=== PATIENT | female | born 1955 | race Caucasian/White ===

== ENCOUNTER → 2020-10-17 | Day surgery (SDC) | payer OTHER ==
[~2020-10-17] MED LIST: ALLERCLEAR10 MG PO; ATORVASTATIN CA40 MG PO; BASAGLAR K100 UNIT/1 SQ; BASAGLAR SQ; BRILINTA 90 MG90 MG PO; CELEXA20 MG PO; CITALOPRAM HBR20 MG PO; CLEARLAX119 GM PO; COLACE 100MG C100 MG PO; COUMADIN7.5 MG PO; CRESTOR20 MG PO; DOCUSATE SODIU100 MG PO; DULERA 100 MCG8.8 GM INH; ECOTRIN81 MG PO; FLUZONE QU60 MCG/015 IM; FUROSEMIDE20 MG PO; HUMALOG MI100 UNIT/3 SC; HUMALOG MI100 UNIT/3 SQ; HYDROCODON-ACE1 EAC6 PO; IMDUR ER TAB 3030 MG PO; K-DUR TAB 10 M10 MEQ PO; K-TAB ER10 MEQ PO; LASIX20 MG PO; LIDOPATCH1 EACH TOP; LIPITOR TAB 2020 MG PO; LOPRESSOR 25 MG25 MG PO; MEDROL DOSEPAK 24 MG PO; NARCAN 2 MG/21 MG/ML; NEURONTIN 400400 MG PO; NEURONTIN400 MG PO; NORCO 10-325 T1 EACH PO; NOVOLOG MI100 UNIT/2 SQ; NOVOLOG100 UNIT/1 SQ; OMEPRAZOLE20 MG PO; PLETAL 100 MG100 MG PO; PRILOSEC OTC20 MG PO; PROVENTIL HFA6.7 GM INH; REQUIP2 MG PO; ROPINIROLE HCL1 MG PO; TUMS ULTRA400 MG PO; VALIUM 10 MG TA10 MG PO; VALIUM 5 MG TAB5 MG PO; VENTOLIN HFA 66.7 GM INH; VENTOLIN/PROVE0.5 ML INH; VITAMIN D250000 UNIT PO; VITAMIN D3 PO; WARFARIN SODIU7.5 MG PO; ZOCOR40 MG PO; ZOFRAN4 MG PO; ZYRTEC10 MG PO
== END | disposition home or self-care (01) ==
LOC: OR 06:04
DX: D50.0 Iron deficiency anemia secondary to blood loss (chronic) (principal); D68.32 Hemorrhagic disorder due to extrinsic circulating anticoagulants; T45.515A Adverse effect of anticoagulants, initial encounter; K29.70 Gastritis, unspecified, without bleeding; I25.2 Old myocardial infarction; I25.10 Atherosclerotic heart disease of native coronary artery without angina pectoris; E78.5 Hyperlipidemia, unspecified; I10 Essential (primary) hypertension; J45.909 Unspecified asthma, uncomplicated; E11.9 Type 2 diabetes mellitus without complications; M19.90 Unspecified osteoarthritis, unspecified site; F17.200 Nicotine dependence, unspecified, uncomplicated; E78.00 Pure hypercholesterolemia, unspecified; K64.8 Other hemorrhoids; E66.9 Obesity, unspecified; Z68.34 Body mass index [BMI] 34.0-34.9, adult; Z79.82 Long term (current) use of aspirin; Z79.01 Long term (current) use of anticoagulants; Z79.899 Other long term (current) drug therapy; Z79.891 Long term (current) use of opiate analgesic; Z88.8 Allergy status to other drugs, medicaments and biological substances; Z88.1 Allergy status to other antibiotic agents; Z86.74 Personal history of sudden cardiac arrest; Z85.3 Personal history of malignant neoplasm of breast; Z96.653 Presence of artificial knee joint, bilateral; Z95.5 Presence of coronary angioplasty implant and graft; Z79.4 Long term (current) use of insulin
CPT/HCPCS: 82962; J1100; J2704; J7040

== ENCOUNTER 2022-02-21 01:46 | Inpatient (IN) | payer MEDICARE, OTHER ==
[~2022-02-21] VITALS: Ht 170.2 cm; Wt 96.2 kg
[~2022-02-21 01:46] MED LIST changes: +ROPINIROLE HCL0.5 MG PO; -ROPINIROLE HCL1 MG PO
[2022-02-21 02:50] LABS: HEMOGLOBIN 7.5 gm/dl (12.3-15.3); RED BLOOD COUNT 3.14 M/UL (4.00-5.10); WHITE BLOOD COUNT 6.6 K/UL (4.5-11.0)
[2022-02-21 03:18] LABS: BUN/CREATININE RATIO 23 (0-10)
[2022-02-21] MEDS ORDERED: DIAZEPAM2 MG PO (09:45)
[2022-02-21] MEDS ORDERED: MORPHINE SULFAT60 M1 PO (09:46)
[2022-02-21] MEDS ORDERED: SENNA8.6 MG PO (09:49)
[2022-02-21] MEDS ORDERED: ALBUTEROL2.5 MG/3 M INH (13:16)
[2022-02-21] MEDS ORDERED: ONDANSETRON HCL4 MG PO (13:16)
[2022-02-21] MEDS ORDERED: WARFARIN SODIUM5 MG PO (13:17)
[2022-02-21] MEDS ORDERED: LEVEMIR FL100 UNIT/1 SQ (13:18)
[2022-02-21] MEDS ORDERED: LINZESS145 MCG PO (13:20)
[2022-02-22 07:59] LABS: HEMOGLOBIN 9.2 gm/dl (12.3-15.3)
[2022-02-22 08:02] LABS: RED BLOOD COUNT 3.63 M/UL (4.00-5.10); WHITE BLOOD COUNT 4.3 K/UL (4.5-11.0)
[2022-02-22 08:15] LABS: BUN/CREATININE RATIO 21 (0-10)
[2022-02-22] MEDS ORDERED: CYCLOBENZAPRINE10 MG PO (11:56)
[2022-02-22] MEDS ORDERED: ENDOCET 10-3251 EACH PO (11:56)
[2022-02-22] MEDS ORDERED: ELIQUIS2.5 MG PO (11:56)
--- NOTE | 2022-02-22 15:31 | NUR ---
clarification from dr. simpson r/t coumadin and lovenox ordered and stated to give both medicine as ordered
[2022-02-23 02:57] LABS: HEMOGLOBIN 7.3 gm/dl (12.3-15.3); WHITE BLOOD COUNT 5.1 K/UL (4.5-11.0)
[2022-02-23 03:14] LABS: RED BLOOD COUNT 2.83 M/UL (4.00-5.10)
[2022-02-23 03:24] LABS: BUN/CREATININE RATIO 32 (0-10)
[2022-02-24 02:56] LABS: HEMOGLOBIN 7.7 gm/dl (12.3-15.3); RED BLOOD COUNT 2.89 M/UL (4.00-5.10); WHITE BLOOD COUNT 5.2 K/UL (4.5-11.0)
[2022-02-24 03:33] LABS: BUN/CREATININE RATIO 25 (0-10)
[2022-02-25 03:33] LABS: BUN/CREATININE RATIO 23 (0-10)
[2022-02-25 06:53] LABS: RED BLOOD COUNT 2.74 M/UL (4.00-5.10); WHITE BLOOD COUNT 4.3 K/UL (4.5-11.0)
[2022-02-25 07:02] LABS: HEMOGLOBIN 6.9 gm/dl (12.3-15.3)
[2022-02-25 18:10] LABS: RED BLOOD COUNT 2.98 M/UL (4.00-5.10); WHITE BLOOD COUNT 4.5 K/UL (4.5-11.0)
[2022-02-26 02:18] LABS: HEMOGLOBIN 7.2 gm/dl (12.3-15.3); WHITE BLOOD COUNT 3.7 K/UL (4.5-11.0)
[2022-02-26 02:24] LABS: RED BLOOD COUNT 2.66 M/UL (4.00-5.10)
[2022-02-26 02:52] LABS: BUN/CREATININE RATIO 27 (0-10)
[2022-02-27 03:44] LABS: RED BLOOD COUNT 2.54 M/UL (4.00-5.10); WHITE BLOOD COUNT 3.3 K/UL (4.5-11.0)
[2022-02-27 04:03] LABS: BUN/CREATININE RATIO 25 (0-10)
--- NOTE | 2022-02-27 10:13 | NUR ---
0909- ATTEMPTED TO CALL DR. CASPER TO NOTIFY HER OF PT HGB 7.0. NO ANSWER, WILL CONTINUE TO TRY TO NOTIFY HER.
--- NOTE | 2022-02-27 10:29 | NUR ---
1029- SPOKE WITH DR CASPER ABOUT PTS HGB 7.0. STATES SHE IS AWARE. NO ORDERS AT THIS TIME
[2022-02-28 04:31] LABS: HEMOGLOBIN 7.7 gm/dl (12.3-15.3); RED BLOOD COUNT 2.62 M/UL (4.00-5.10)
[2022-02-28 04:50] LABS: BUN/CREATININE RATIO 32 (0-10)
[2022-02-28] MEDS ORDERED: ENOXAPARIN100 MG/1 M SC (08:47)
[2022-02-28] MEDS ORDERED: HUMALOG 10100 UNITS/ SC (08:47)
[2022-02-28] MEDS ORDERED: DIAZEPAM2 MG PO (08:47)
[2022-02-28] MEDS ORDERED: NEURONTIN400 MG PO (08:47)
[2022-02-28] MEDS ORDERED: MORPHINE SULFAT60 M1 PO (08:47)
== END 2022-02-28 15:15 | DRG 481 ==
LOC: ER1 01:46 → CDU 04:58 → M/S 04:58
PROVIDERS: Internal Medicine; Orthopaedic Surgery; Student in an Organized Health Care Education/Training Program; ADMIT Internal Medicine
PROC: 0QS706Z Reposition Left Upper Femur with Intramedullary Internal Fixation Device, Open Approach (ICD-10-PCS; principal; 2022-02-22 11:30)
PROC: 30233N1 Transfusion of Nonautologous Red Blood Cells into Peripheral Vein, Percutaneous Approach (ICD-10-PCS; 2022-02-25)
DX: S72.142A Displaced intertrochanteric fracture of left femur, initial encounter for closed fracture (principal); J96.11 Chronic respiratory failure with hypoxia; C56.9 Malignant neoplasm of unspecified ovary; Z20.822 Contact with and (suspected) exposure to COVID-19; D62 Acute posthemorrhagic anemia; C78.00 Secondary malignant neoplasm of unspecified lung; J44.9 Chronic obstructive pulmonary disease, unspecified; G89.3 Neoplasm related pain (acute) (chronic); D64.81 Anemia due to antineoplastic chemotherapy; T45.1X5A Adverse effect of antineoplastic and immunosuppressive drugs, initial encounter; D69.6 Thrombocytopenia, unspecified; I10 Essential (primary) hypertension; W18.30XA Fall on same level, unspecified, initial encounter; I25.10 Atherosclerotic heart disease of native coronary artery without angina pectoris; F17.210 Nicotine dependence, cigarettes, uncomplicated; Z96.659 Presence of unspecified artificial knee joint; E11.9 Type 2 diabetes mellitus without complications; F41.9 Anxiety disorder, unspecified; K21.9 Gastro-esophageal reflux disease without esophagitis; E78.5 Hyperlipidemia, unspecified; Z86.711 Personal history of pulmonary embolism; Z79.01 Long term (current) use of anticoagulants; Z85.43 Personal history of malignant neoplasm of ovary; Z79.82 Long term (current) use of aspirin; Z99.81 Dependence on supplemental oxygen; Y92.091 Bathroom in other non-institutional residence as the place of occurrence of the external cause; Z95.5 Presence of coronary angioplasty implant and graft; Z90.710 Acquired absence of both cervix and uterus; Z90.49 Acquired absence of other specified parts of digestive tract; Z88.1 Allergy status to other antibiotic agents; Z84.1 Family history of disorders of kidney and ureter; Z86.718 Personal history of other venous thrombosis and embolism; I25.2 Old myocardial infarction
CPT/HCPCS: 36415; 36430; 36600; 70450; 71045; 72125; 72192; 73502; 73552; 76000; 80048; 80053; 81001; 82550; 82553; 82803; 82962; 83036; 83735; 84484; 85018; 85025; 85027; 85610; 85730; 86850; 86900; 86901; 86920; 93005; 94640; 94664; 94760; 96374; 96375; 97110-GP-CQ; 97116-GP-CQ; 97161; 97165; 97530-GP-CQ; 99285; C1713; J0690; J1100; J1650; J2001; J2250; J2270; J2405; J2704; J2795; J3010; J7030; J7050; J7120; P9016; P9040; U0002